=== PATIENT | female | born 1970 | race Two or more races ===

== ENCOUNTER 2025-07-05 12:40 | Emergency (ER) | payer OTHER ==
[~2025-07-05] VITALS: Ht 170.2 cm; Wt 90.7 kg
[2025-07-05] MEDS ORDERED: KETOROLAC TROMETHAMINE 30 MG VIAL IM ONE (16:00)
[2025-07-05] MEDS ORDERED: KETOROLAC TROMETHAMINE 30 MG VIAL ONE (16:59)
[2025-07-05] MEDS ORDERED: TYLENOL ARTHRI650 MG PO (17:01)
== END 2025-07-05 17:27 | disposition home or self-care (01) ==
LOC: ER 12:40
DX: M79.672 Pain in left foot (principal); M79.671 Pain in right foot; M77.32 Calcaneal spur, left foot; I10 Essential (primary) hypertension